=== PATIENT | female | born 1945 | race Caucasian/White ===

== ENCOUNTER 2016-08-10 11:25 | Emergency (ER) | payer OTHER ==
--- NOTE | 2016-08-10 11:31 | PD ---
HPI Chief Complaint: altered mental status Time Seen by Provider: 11:31 Travel History International Travel<30 days: No Contact w/Intl Traveler<30days: No History of Present Illness HPI 70-year-old female with history of dementia presents to the ED via EMS from her assisted living facility for evaluation of possible altered mental status. The patient is alert, oriented to self only. She denies headaches, fever, chills, chest pain, cough, shortness of breath, abdominal pain, nausea, vomiting, constipation, diarrhea, dysuria, back pain, weakness. She is unable to provide any meaningful medical history. Call was placed to the patient's [facility]. They state that they do not have a complete medical history of the patient, are only aware of her dementia and prescribed sertraline, memantine and donepezil medications. [facility] Social History Tobacco Use: No Allergies-Medications (Allergen,Severity, Reaction): Coded Allergies: No Known Allergies (Unverified , 08/10/16) Reported Meds & Prescriptions Reported Meds & Active Scripts Active Nystop Topical (Nystatin Topical) 100,000 Unit/Gm Powd 1 Applic TOPICAL Q12HR Reported Aricept (Donepezil) 23 Mg Tab 23 Mg PO HS Do not split, crushed or chewed. Memantine 5 Mg Tab 5 Mg PO DAILY Sertraline (Sertraline HCl) 50 Mg Tab 50 Mg PO DAILY Review of Systems ROS Limitations: Poor Historian (dementia) Physical Exam Narrative GENERAL: Well-nourished, well-developed alert, nontoxic-appearing white female in no acute distress. Oriented only to self. SKIN: Warm and dry. Patient has large areas of erythematous scaling under both breasts and groin, consistent with candidiasis. HEAD: Normocephalic. Atraumatic. EYES: No scleral icterus. No injection or drainage. PERRLA. EOMI. ENT: Pearly beasley tympanic membranes bilaterally. Oropharynx without erythema, edema or exudate. NECK: Supple, trachea midline. No JVD or lymphadenopathy. CARDIOVASCULAR: Regular rate and rhythm without murmurs, gallops, or rubs. 2+ DP and radial pulses bilaterally. RESPIRATORY: Breath sounds clear and equal bilaterally. No accessory muscle use. GASTROINTESTINAL: Abdomen soft, non-tender, nondistended. Active bowel sounds. MUSCULOSKELETAL: No cyanosis. 1+ edema on the right to the ankle. BACK: Nontender without obvious deformity. No CVA tenderness. Data Data Last Documented VS Vital Signs Date Time Temp Pulse Resp B/P Pulse Ox O2 Delivery O2 Flow Rate FiO2 08/10/16 13:07 58 20 195/79 100 08/10/16 11:42 97.8 Orders Electrocardiogram (08/10/16 11:41) Ammonia (08/10/16 11:41) Complete Blood Count With Diff (08/10/16 11:41) Comprehensive Metabolic Panel (08/10/16 11:41) Creatine Kinase (Cpk) (08/10/16 11:41) Prothrombin Time / Inr (Pt) (08/10/16 11:41) Act Partial Throm Time (Ptt) (08/10/16 11:41) Troponin I (08/10/16 11:41) Urinalysis - C+S If Indicated (08/10/16 11:41) Ct Brain W/O Iv Contrast(Rout) (08/10/16 11:41) Blood Glucose (08/10/16 11:41) Ecg Monitoring (08/10/16 11:41) Iv Access Insert/Monitor (08/10/16 11:41) Oximetry (08/10/16 11:41) Sodium Chloride 0.9% Flush (Ns Flush) (08/10/16 11:45) Chest, Single Ap (08/10/16 ) Labs Laboratory Tests Test 08/10/16 08/10/16 12:00 13:28 White Blood Count 8.4 TH/MM3 Red Blood Count 4.57 MIL/MM3 Hemoglobin 13.2 GM/DL Hematocrit 39.1 % Mean Corpuscular Volume 85.4 FL Mean Corpuscular Hemoglobin 29.0 PG Mean Corpuscular Hemoglobin 33.9 % Concent Red Cell Distribution Width 14.3 % Platelet Count 260 TH/MM3 Mean Platelet Volume 9.7 FL Neutrophils (%) (Auto) 74.8 % Lymphocytes (%) (Auto) 19.1 % Monocytes (%) (Auto) 4.8 % Eosinophils (%) (Auto) 0.4 % Basophils (%) (Auto) 0.9 % Neutrophils # (Auto) 6.3 TH/MM3 Lymphocytes # (Auto) 1.6 TH/MM3 Monocytes # (Auto) 0.4 TH/MM3 Eosinophils # (Auto) 0.0 TH/MM3 Basophils # (Auto) 0.1 TH/MM3 CBC Comment DIFF FINAL Differential Comment Prothrombin Time 11.5 SEC Prothromb Time International 1.0 RATIO Ratio Activated Partial 27.7 SEC Thromboplast Time Sodium Level 140 MEQ/L Potassium Level 3.6 MEQ/L Chloride Level 103 MEQ/L Carbon Dioxide Level 28.9 MEQ/L Anion Gap 8 MEQ/L Blood Urea Nitrogen 12 MG/DL Creatinine 0.73 MG/DL Estimat Glomerular Filtration 79 ML/MIN Rate Random Glucose 83 MG/DL Calcium Level 9.2 MG/DL Total Bilirubin 0.6 MG/DL Aspartate Amino Transf 13 U/L (AST/SGOT) Alanine Aminotransferase 18 U/L (ALT/SGPT) Alkaline Phosphatase 79 U/L Ammonia LESS THAN 10 MCMOL/L Total Creatine Kinase 91 U/L Troponin I LESS THAN 0.02 NG/ML Total Protein 7.6 GM/DL Albumin 3.9 GM/DL Urine Color YELLOW Urine Turbidity CLEAR Urine pH 5.5 Urine Specific [place] 1.011 Urine Protein NEG mg/dL Urine Glucose (UA) NEG mg/dL Urine Ketones 10 mg/dL Urine Occult Blood SMALL Urine Nitrite NEG Urine Bilirubin NEG Urine Urobilinogen LESS THAN 2.0 MG/DL Urine Leukocyte Esterase NEG Urine RBC 2 /hpf Urine WBC 1 /hpf Urine Squamous Epithelial <1 /hpf Cells Urine Mucus FEW /lpf Microscopic Urinalysis Comment CATH-CULT NOT IND MDM Medical Decision Making Medical Screen Exam Complete: Yes Emergency Medical Condition: Yes Interpretation(s) EKG rate 51, sinus rhythm. NH interval 139, QRS 89, QTC 422. No ischemic changes. Reviewed by Dr. Cummings Differential Diagnosis Cystitis versus pyelonephritis versus electrolyte abnormality versus anemia versus ICH versus polypharmacy versus other Narrative Course 70-year-old female with PMH of dementia presents to the ED from her [facility] for evaluation of possible AMS. Patient is alert, oriented only to self. Review of systems is negative. The patient is unable to provide any other meaningful medical history. Vitals reviewed. Pulse 51. BP 193/74 on arrival. Physical exam reveals a nontoxic appearing white female in no acute distress. She follows commands, chest is clear to auscultation, abdomen soft, nontender, no CVA tenderness, no focal neural deficits. 1+ pitting edema on the right to the mid ankle. The [facility] reports that the patient was not following commands this morning. They report increase of her Aricept dosage in the last week. IV was established. Patient was placed on continuous monitoring. Fingerstick blood glucose: 86 CBC: No leukocytosis or anemia CMP: Unremarkable INR: 1.0 Ammonia: Less than 10 UA: No culture indicated Cardiac enzymes: Negative Chest x-ray: No acute disease CT of the brain: Atrophy and small vessel ischemic change per radiology read Patient remained pleasantly confused. No focal neural deficits. No concerning abnormality of the labs, chest x-ray, CT of the brain, UA. I certainly see no reason to admit this patient. I discussed the patient, workup, plan of care with Dr. Cummings who is agreeable. Patient is prescribed nystatin powder for intertriginous candidiasis. She is stable and discharge to her [facility]. Diagnosis Primary Impression: Intertriginous candidiasis Referrals: Primary Care Physician Patient Instructions: General Instructions, Vulvovaginal Candidiasis (ED) Additional Instructions: Apply nystatin powder 2 times a day. Keep the area clean and dry. Follow-up with the primary care provider. Return to the ED for any urgent or emergent medical condition. Med/Other Pt SpecificInfo: Prescription(s) given Scripts Nystatin Topical (Nystop Topical)100,000 Unit/Gm Powd1 Applic TOPICAL Q12HR # 30 GM Ref 0 Prov:Piero Cummings MD 08/10/16 Disposition: 03 DISCHARGE TO SNF Condition: Stable Briana Stevenson Aug 10, 2016 11:31
[2016-08-10 11:42] VITALS: BP 193/74; PULSE 51; RESP 20; TEMP 97.8; O2SAT 98
[2016-08-10] MEDS ORDERED: SODIUM CHLORIDE 0.9% FLUSH 5 ML FLUSH IVF PRN (11:45)
[2016-08-10 11:50] VITALS: O2SAT 100
[2016-08-10] MEDS ORDERED: MEMA1TAB PO (11:50)
[2016-08-10] MEDS ORDERED: SERT-132 PO (11:50)
[2016-08-10] MEDS ORDERED: ARIC23TA PO (11:50)
[2016-08-10 12:12] LABS: AUTOMATED NEUTROPHIL # 6.3 TH/MM3 (1.8-7.7); BASOPHIL # 0.1 TH/MM3 (0-0.2); BASOPHIL % 0.9 % (0.0-2.0); EOSINOPHIL % 0.4 % (0.0-4.0); HEMATOCRIT 39.1 % (35.0-46.0); HEMO FLAGS DIFF FINAL; LYMPH % 19.1 % (9.0-44.0); LYMPHOCYTE # 1.6 TH/MM3 (1.0-4.8); MEAN CELL VOLUME 85.4 FL (80.0-100.0); MEAN CORPUSCULAR HGB CONC 33.9 % (32.0-36.0); MONO % 4.8 % (0.0-8.0); NEUT % 74.8 % (16.0-70.0); PLATELET COUNT 260 TH/MM3 (150-450); RED BLOOD COUNT 4.57 MIL/MM3 (4.00-5.30); RED CELL DISTRIBUTION WIDTH 14.3 % (11.6-17.2); WHITE BLOOD COUNT 8.4 TH/MM3 (4.0-11.0)
--- NOTE | 2016-08-10 12:19 | RADRPT ---
EXAM DATE/TIME: 08/10/2016 11:59 [facility] COMPARISON: No previous studies available for comparison. INDICATIONS : Altered mental status. RADIATION DOSE: 56.35 CTDIvol (mGy) MEDICAL HISTORY : Dementia. SURGICAL HISTORY : None. ENCOUNTER: Initial ACUITY: 1 day PAIN SCALE: 0/10 LOCATION: cranial TECHNIQUE: Multiple contiguous axial images were obtained of the head. Using automated exposure control and adj ustment of the mA and/or kV according to patient size, radiation dose was kept as low as reasonably a chievable to obtain optimal diagnostic quality images. FINDINGS: CEREBRUM: The ventricles are normal for age with mild to moderate atrophic change and chronic small vessel isch emic change. No evidence of midline shift, mass lesion, hemorrhage or acute infarction. No extra-axi al fluid collections are seen. POSTERIOR FOSSA: The cerebellum and brainstem are intact. The 4th ventricle is midline. The cerebellopontine angle i s unremarkable. EXTRACRANIAL: The visualized portion of the orbits is intact. SKULL: The calvaria is intact. No evidence of skull fracture. CONCLUSION: Atrophy and chronic small vessel ischemic change. Osman Jimenez MD on August 10, 2016 at 12:16 Board Certified Radiologist. This report was verified electronically.
[2016-08-10 12:27] LABS: ALT (GPT) 18 U/L (10-53); ANION GAP 8 MEQ/L (5-15); AST (GOT) 13 U/L (15-37); BICARBONATE 28.9 MEQ/L (21.0-32.0); BLOOD UREA NITROGEN 12 MG/DL (7-18); CHLORIDE 103 MEQ/L (98-107); GLOMERULAR FILTRATION RATE 79 ML/MIN (>89); POTASSIUM 3.6 MEQ/L (3.5-5.1); SODIUM (NA) 140 MEQ/L (136-145)
[2016-08-10 12:31] LABS: ALKALINE PHOSPHATASE 79 U/L (45-117); TOTAL BILIRUBIN ADULT 0.6 MG/DL (0.2-1.0)
[2016-08-10 12:42] LABS: CREATINE KINASE 91 U/L (26-192); PROTHROMBIN TIME - PATIENT 11.5 SEC (9.8-11.6)
[2016-08-10 12:47] LABS: APTT (PATIENT) 27.7 SEC (24.3-30.1)
[2016-08-10 13:07] VITALS: BP 195/79; PULSE 58; RESP 20; O2SAT 100
--- NOTE | 2016-08-10 13:36 | RADRPT ---
EXAM DATE/TIME: 08/10/2016 13:02 [facility] COMPARISON: No previous studies available for comparison. INDICATIONS : Short of breath, altered mental status, rash across anterior chest MEDICAL HISTORY : altered mental status SURGICAL HISTORY : None. ENCOUNTER: Initial ACUITY: 1 day PAIN SCORE: Non-responsive. LOCATION: Bilateral chest FINDINGS: A single view of the chest demonstrates the lungs to be symmetrically aerated without evidence of mas s, infiltrate or effusion. The cardiomediastinal contours are unremarkable. Osseous structures are intact. There are multiple overlying electrocardiogram leads. CONCLUSION: No acute disease. Osman Jimenez MD on August 10, 2016 at 13:34 Board Certified Radiologist. This report was verified electronically.
[2016-08-10] MEDS ORDERED: NYST10007 TOPICAL (13:46)
[2016-08-10 13:51] LABS: BLOOD, URINE SMALL (NEG); GLUCOSE,URINE NEG (NEG); KETONE, URINE 10 mg/dL (NEG); MUCUS URINE FEW /lpf (OCC); NITRITE,URINE NEG (NEG); PH, URINE 5.5 (5.0-8.5); SQUAMOUS EPITHELIAL CELL URINE <1 /hpf (0-5); URINE COLOR YELLOW (YELLW/STRAW)
[2016-08-10 13:55] LABS: COMMENT (UR) CATH-CULT NOT IND; CULTURE IF INDICATED CATH CULTURE NOT IND
--- NOTE | 2016-08-11 23:06 | EKG ---
Date Performed: 08/10/2016 Time Performed: 14:49:26 PTAGE: 70 years EKG: SINUS BRADYCARDIA BORDERLINE ECG PREVIOUS TRACING : 08/10/2016 12.34 DOCTOR: Julito Rosales Interpretating Date/Time 08/11/2016 22:59:47
--- NOTE | 2016-08-11 23:10 | EKG ---
Date Performed: 08/10/2016 Time Performed: 12:34:04 PTAGE: 70 years EKG: SINUS BRADYCARDIA Electrical interferences preclude further analysis of the tracing NO PREVIOUS TRACING DOCTOR: Julito Rosales Interpretating Date/Time 08/12/2016 12:46:19
== END 2016-08-10 17:21 ==
LOC: NEPE 11:25 → NEPA 17:21
DX: B37.2 Candidiasis of skin and nail (principal); F03.90 Unspecified dementia, unspecified severity, without behavioral disturbance, psychotic disturbance, mood disturbance, and anxiety; R00.1 Bradycardia, unspecified
CPT/HCPCS: 70450; 71010; 80053; 81001; 82140; 82550; 84484; 85025; 85610; 85730; 93005